=== PATIENT | female | born 1935 | race Caucasian/White ===

== ENCOUNTER 2017-07-19 23:09 | Observation (INO) | payer OTHER ==
[~2017-07-19] VITALS: Ht 170.2 cm; Wt 73.0 kg
[2017-07-20 00:51] LABS: microscopic required? NO
[2017-07-20 01:59] LABS: ALKALINE PHOSPHATASE 77 U/L (46-116); ALT/SGPT 14 U/L (14-59); AST/SGOT 10 U/L (15-37); BILIRUBIN TOTAL 0.12 mg/dL (0.20-1.00); CARBON DIOXIDE 31.2 mmol/L (21-32); CHLORIDE SERUM 99 mmol/L (98-107); CREATININE SERUM 1.1 mg/dL (0.6-1.0); GLUCOSE SERUM 85 mg/dL (74-106); LIPASE 63 IU/L (73-393); SODIUM SERUM 140 mmol/L (136-145); TOTAL PROTEIN, SERUM 6.6 g/dL (6.4-8.2)
[2017-07-20 02:00] LABS: BASOPHIL % 0.2 % (0-2); PLATELET COUNT 200 x10^3mcL (130-400); RED CELL DISTRIBUTION WIDTH 12.9 % (11.5-14.5)
[2017-07-20 02:04] LABS: ALBUMIN 3.2 g/dL (3.4-5.0); POTASSIUM SERUM 2.7 mmol/L (3.5-5.1)
[2017-07-20 02:04] LABS: urine erythrocyte NEGATIVE (NEGATIVE)
[2017-07-20 04:00] LABS: CHOLESTEROL/HDL RATIO 2.5; MAGNESIUM 1.7 mg/dL (1.8-2.4); PHOSPHOROUS 2.4 mg/dL (2.5-4.9)
[2017-07-20 04:06] LABS: AMPHETAMINE QUAL UR NONE DETECTED (NEG <=1000)
[2017-07-20 04:11] LABS: FREE T4 0.92 ng/dL (0.76-1.46); FREE THYROXINE INDEX 2.9 ug/dL (1.4-4.5); T4(THYROXINE) 8.3 ug/dL (4.7-13.3)
[2017-07-20 04:19] LABS: T3 TOTAL 0.93 ng/mL
[2017-07-20] MEDS ORDERED: DURAGESIC100 MCG/HR TD (05:57)
[2017-07-20] MEDS ORDERED: APAP/HYDROCODON1 T11 PO (05:58)
[2017-07-20] MEDS ORDERED: FLORASTOR1 CAP PO (05:59)
[2017-07-20] MEDS ORDERED: ONDANSETRON4 M3 PO (06:02)
[2017-07-20] MEDS ORDERED: MAPAP650 MG/20. PO (06:03)
[2017-07-20] MEDS ORDERED: FUROSEMIDE40 MG PO (06:03)
[2017-07-20] MEDS ORDERED: GOOD SENSE OMEP20 MG PO (06:04)
[2017-07-20] MEDS ORDERED: LEVOXYL0.088 MG PO (06:04)
[2017-07-20] MEDS ORDERED: BUSPIRONE HCL10 MG (06:05)
[2017-07-20] MEDS ORDERED: COZAAR100 MG PO (06:05)
[2017-07-20] MEDS ORDERED: BUSPIRONE HCL10 MG PO (06:06)
[2017-07-20] MEDS ORDERED: LORAZEPAM2 MG PO (06:10)
[2017-07-20] MEDS ORDERED: LASIX40 MG PO (06:11)
[2017-07-20] MEDS ORDERED: BEN20 PO (06:12)
[2017-07-20] MEDS ORDERED: ALLERGY10 M2 PO (06:13)
[2017-07-20] MEDS ORDERED: TRAZODONE50 M1 PO (06:13)
[2017-07-20] MEDS ORDERED: NATURE'S BLEND500 M3 PO (06:13)
[2017-07-20] MEDS ORDERED: POTASSIUM CHLO20 ME4 PO (06:14)
[2017-07-20] MEDS ORDERED: BACLOFEN10 MG PO (06:14)
[2017-07-20] MEDS ORDERED: ASPIR LOW81 MG PO (06:15)
[2017-07-20] MEDS ORDERED: D-20001 TAB PO (06:15)
[2017-07-20] MEDS ORDERED: NOR10 PO (06:16)
[2017-07-20] MEDS ORDERED: REFRESH TEARS15 ML OT (06:17)
[2017-07-20] MEDS ORDERED: BONINE25 MG PO (06:18)
[2017-07-20] MEDS ORDERED: LOPERAMIDE HCL2 MG PO (06:18)
[2017-07-20] MEDS ORDERED: OMEPRAZOLE40 M1 PO (06:19)
[2017-07-20] MEDS ORDERED: APLICARE ANTIS118 M2 PO (06:20)
[2017-07-20 09:40] VITALS: BP 121/62
[2017-07-20 10:23] VITALS: BP 117/61
[2017-07-20 11:39] VITALS: BP 117/61
[2017-07-20 12:28] LABS: CALCIUM 8.4 mg/dL (8.5-10.1); CARBON DIOXIDE 29.4 mmol/L (21-32); CHLORIDE SERUM 103 mmol/L (98-107); CREATININE SERUM 0.8 mg/dL (0.6-1.0); GLUCOSE SERUM 82 mg/dL (74-106); SODIUM SERUM 140 mmol/L (136-145)
[2017-07-20 13:45] VITALS: BP 134/63
[2017-07-20 16:37] VITALS: BP 130/52
[2017-07-21 05:28] VITALS: BP 140/56
[2017-07-21 07:11] LABS: BASOPHIL % 0.9 % (0-2); PLATELET COUNT 163 x10^3mcL (130-400); RED CELL DISTRIBUTION WIDTH 13.8 % (11.5-14.5)
[2017-07-21 07:13] LABS: CALCIUM 8.7 mg/dL (8.5-10.1); CARBON DIOXIDE 27.9 mmol/L (21-32); CHLORIDE SERUM 108 mmol/L (98-107); CREATININE SERUM 0.7 mg/dL (0.6-1.0); GLUCOSE SERUM 79 mg/dL (74-106); PHOSPHOROUS 3.7 mg/dL (2.5-4.9); POTASSIUM SERUM 4.3 mmol/L (3.5-5.1); SODIUM SERUM 142 mmol/L (136-145)
[2017-07-21 09:45] VITALS: BP 101/47
[2017-07-21 13:03] VITALS: BP 135/67
[2017-07-21 14:09] VITALS: BP 135/67
== END 2017-07-21 16:14 | disposition home health service (06) | DRG 641 ==
LOC: ED 23:09 → DU 07-20 02:38
PROVIDERS: Emergency Medicine; Student in an Organized Health Care Education/Training Program; ADMIT Family Medicine Sports Medicine
DX: E87.2 Acidosis (principal); E44.1 Mild protein-calorie malnutrition; J98.11 Atelectasis; I31.3 Pericardial effusion (noninflammatory); E87.6 Hypokalemia; E83.42 Hypomagnesemia; E83.39 Other disorders of phosphorus metabolism; S32.501D Unspecified fracture of right pubis, subsequent encounter for fracture with routine healing; S32.502D Unspecified fracture of left pubis, subsequent encounter for fracture with routine healing; N28.9 Disorder of kidney and ureter, unspecified; K57.90 Diverticulosis of intestine, part unspecified, without perforation or abscess without bleeding; E78.1 Pure hyperglyceridemia; E03.9 Hypothyroidism, unspecified; I10 Essential (primary) hypertension; X58.XXXD Exposure to other specified factors, subsequent encounter
CPT/HCPCS: 83880; 84439; 97110-GP; G0378; J1580; J2060; J2405; J3370; J3475; J3480; J3490; J7030; J7050; Q0092; Q0162; Q9967

== ENCOUNTER 2017-07-31 09:24 | Emergency (ER) | payer OTHER ==
[~2017-07-31] VITALS: Ht 170.2 cm; Wt 52.2 kg
[~2017-07-31 09:24] MED LIST: ALLERGY10 M2 PO; APAP/HYDROCODON1 T11 PO; APLICARE ANTIS118 M2 PO; ASPIR LOW81 MG PO; BACLOFEN10 MG PO; BEN20 PO; BONINE25 MG PO; BUSPIRONE HCL10 MG; BUSPIRONE HCL10 MG PO; COZAAR100 MG PO; D-20001 TAB PO; DURAGESIC100 MCG/HR TD; FLORASTOR1 CAP PO; FUROSEMIDE40 MG PO; GOOD SENSE OMEP20 MG PO; LASIX40 MG PO; LEVOXYL0.088 MG PO; LOPERAMIDE HCL2 MG PO; LORAZEPAM2 MG PO; MAPAP650 MG/20. PO; NATURE'S BLEND500 M3 PO; NOR10 PO; OMEPRAZOLE40 M1 PO; ONDANSETRON4 M3 PO; POTASSIUM CHLO20 ME4 PO; REFRESH TEARS15 ML OT; TRAZODONE50 M1 PO
[2017-07-31 11:03] VITALS: BP 115/80
== END 2017-07-31 11:03 | disposition home or self-care (01) ==
LOC: ED 09:24
DX: S05.02XA Injury of conjunctiva and corneal abrasion without foreign body, left eye, initial encounter (principal); I10 Essential (primary) hypertension; Z88.1 Allergy status to other antibiotic agents; Z88.5 Allergy status to narcotic agent; Z88.2 Allergy status to sulfonamides; Z79.899 Other long term (current) drug therapy; W22.8XXA Striking against or struck by other objects, initial encounter; Y93.89 Activity, other specified; Y99.8 Other external cause status; Y92.89 Other specified places as the place of occurrence of the external cause

== ENCOUNTER 2017-09-13 08:03 | Inpatient (IN) | payer OTHER ==
[~2017-09-13] VITALS: Ht 172.7 cm; Wt 72.3 kg
[2017-09-13 10:22] LABS: BASOPHIL % 0.3 % (0-2); PLATELET COUNT 244 x10^3mcL (130-400); RED CELL DISTRIBUTION WIDTH 14.2 % (11.5-14.5)
[2017-09-13 10:46] LABS: CALCIUM 9.4 mg/dL (8.5-10.1); CARBON DIOXIDE 34.2 mmol/L (21-32); CHLORIDE SERUM 98 mmol/L (98-107); GLUCOSE SERUM 120 mg/dL (74-106); POTASSIUM SERUM 3.9 mmol/L (3.5-5.1); SODIUM SERUM 140 mmol/L (136-145)
[2017-09-13 10:51] LABS: ALBUMIN 3.6 g/dL (3.4-5.0); ALKALINE PHOSPHATASE 88 U/L (46-116); ALT/SGPT 14 U/L (14-59); AST/SGOT 17 U/L (15-37); LIPASE 61 IU/L (73-393); TOTAL PROTEIN, SERUM 7.6 g/dL (6.4-8.2)
[2017-09-13 14:37] VITALS: BP 135/81
[2017-09-13 14:45] VITALS: Ht 172.7 cm; Wt 72.3 kg
[2017-09-13] MEDS ORDERED: KLOR-CON M1010 MEQ PO (15:51)
[2017-09-13] MEDS ORDERED: LORAZEPAM1 MG PO (15:53)
[2017-09-13] MEDS ORDERED: LASIX20 MG PO (15:57)
[2017-09-13] MEDS ORDERED: ATIVAN2 MG PO (15:59)
[2017-09-13] MEDS ORDERED: LOMOTIL1 TAB PO (16:00)
[2017-09-13] MEDS ORDERED: ZOF4 PO (16:01)
[2017-09-13] MEDS ORDERED: ACETAMINOPHEN650 M6 PO (16:03)
[2017-09-13 16:25] LABS: PHOSPHOROUS 3.1 mg/dL (2.5-4.9)
[2017-09-13 16:37] LABS: FREE T4 1.1 ng/dL (0.76-1.46); FREE THYROXINE INDEX 2.6 ug/dL (1.4-4.5); T4(THYROXINE) 8.8 ug/dL (4.7-13.3)
[2017-09-13 16:40] LABS: CHOLESTEROL/HDL RATIO 2.2
[2017-09-13 18:39] LABS: T3 TOTAL 1.11 ng/mL
[2017-09-13 20:45] VITALS: BP 118/41
[2017-09-14 05:12] VITALS: BP 124/55
[2017-09-14 07:24] LABS: BASOPHIL % 0.5 % (0-2); PLATELET COUNT 194 x10^3mcL (130-400); RED CELL DISTRIBUTION WIDTH 14.1 % (11.5-14.5)
[2017-09-14 08:16] LABS: CALCIUM 8.1 mg/dL (8.5-10.1); CARBON DIOXIDE 29.9 mmol/L (21-32); CHLORIDE SERUM 105 mmol/L (98-107); CREATININE SERUM 0.9 mg/dL (0.6-1.0); GLUCOSE SERUM 91 mg/dL (74-106); MAGNESIUM 1.7 mg/dL (1.8-2.4); PHOSPHOROUS 2.7 mg/dL (2.5-4.9); POTASSIUM SERUM 3.4 mmol/L (3.5-5.1); SODIUM SERUM 142 mmol/L (136-145)
[2017-09-14 09:59] VITALS: BP 140/66
[2017-09-14 12:15] VITALS: BP 137/62
[2017-09-14 16:07] VITALS: BP 121/50
[2017-09-14 21:07] VITALS: BP 132/60
[2017-09-15 05:14] VITALS: BP 156/72
[2017-09-15 07:37] LABS: BASOPHIL % 0.6 % (0-2); PLATELET COUNT 184 x10^3mcL (130-400); RED CELL DISTRIBUTION WIDTH 14.2 % (11.5-14.5)
[2017-09-15 07:55] LABS: CALCIUM 8.3 mg/dL (8.5-10.1); CARBON DIOXIDE 26.1 mmol/L (21-32); CHLORIDE SERUM 105 mmol/L (98-107); CREATININE SERUM 0.6 mg/dL (0.6-1.0); GLUCOSE SERUM 96 mg/dL (74-106); MAGNESIUM 2.1 mg/dL (1.8-2.4); PHOSPHOROUS 2.2 mg/dL (2.5-4.9); SODIUM SERUM 134 mmol/L (136-145)
[2017-09-15 08:11] LABS: POTASSIUM SERUM 2.8 mmol/L (3.5-5.1)
[2017-09-15 10:45] VITALS: BP 148/73
[2017-09-15 18:14] VITALS: BP 123/67
[2017-09-15 18:24] LABS: CARBON DIOXIDE 28.9 mmol/L (21-32); CHLORIDE SERUM 106 mmol/L (98-107); CREATININE SERUM 0.6 mg/dL (0.6-1.0); GLUCOSE SERUM 85 mg/dL (74-106); POTASSIUM SERUM 3.5 mmol/L (3.5-5.1); SODIUM SERUM 141 mmol/L (136-145)
[2017-09-15 21:53] VITALS: BP 146/69
[2017-09-16 05:36] VITALS: BP 130/56
[2017-09-16] MEDS ORDERED: ATORVASTATIN CA40 M1 PO (10:04)
[2017-09-16 10:05] VITALS: BP 140/64
[2017-09-16 12:04] VITALS: BP 140/64
[2017-09-16] MEDS ORDERED: LOPERAMIDE HCL2 MG PO (14:14)
== END 2017-09-16 14:49 | disposition home or self-care (01) | DRG 391 ==
LOC: ED 08:03 → DU 13:08
PROVIDERS: Emergency Medicine; Family Medicine; Student in an Organized Health Care Education/Training Program
DX: K52.9 Noninfective gastroenteritis and colitis, unspecified (principal); G93.41 Metabolic encephalopathy; I70.0 Atherosclerosis of aorta; K57.90 Diverticulosis of intestine, part unspecified, without perforation or abscess without bleeding; E83.42 Hypomagnesemia; E87.6 Hypokalemia; E03.9 Hypothyroidism, unspecified; F03.90 Unspecified dementia, unspecified severity, without behavioral disturbance, psychotic disturbance, mood disturbance, and anxiety; Z68.24 Body mass index [BMI] 24.0-24.9, adult; Z79.891 Long term (current) use of opiate analgesic; Z79.82 Long term (current) use of aspirin; Z79.1 Long term (current) use of non-steroidal anti-inflammatories (NSAID); Z87.891 Personal history of nicotine dependence; Z66 Do not resuscitate
CPT/HCPCS: 83880; 84439; 87804; J0500; J1956; J2060; J2405; J2550; J3010; J3475; J3480; J3490; J7030; Q0092